=== PATIENT | female | born 1980 | race African-American/Black ===

== ENCOUNTER 2019-12-29 15:40 | Emergency (ER) | payer BC, SELFPAY ==
[2019-12-29 15:55] VITALS: BP 113/76; PULSE 72; RESP 16; TEMP 36.2; O2SAT 99
--- NOTE | 2019-12-29 15:56 | ED.UPPEXIN ---
HPI - Extremity Injury (Upper) General Chief Complaint: Extremity Injury, Upper Stated Complaint: injury Time Seen by Provider: 12/29/19 15:59 Source: patient Mode of arrival: ambulatory Limitations: no limitations History of Present Illness HPI narrative: Odalis Valdez is a 39 yo female with no PMH who comes to express care with R hand pain and tinglig/ burnng last week. Palmar hand and fingers are burning and numb. Ms. Pereira uses her hands and wrists a lot but has had a history of carpal tunnel syndrome Related Data Allergies Allergy/AdvReac Type Severity Reaction Status Date / Time No Known Allergies Allergy Verified 12/29/19 16:00 Review of Systems Review of Systems: Narrative: CONSTITUTIONAL: Denies fever, chills, sweats. EYES: Denies visual changes, redness, discharge. ENT: Denies rhinorrhea, congestion, sore throat, otalgia. CARDIOVASCULAR: Denies chest pain, palpitations, edema. RESPIRATORY: Denies dyspnea, wheezing, cough GASTROINTESTINAL: Denies abdominal pain, nausea, vomiting, diarrhea. GENITOURINARY: Denies dysuria, hematuria, abnormal discharge SKIN: Denies rash or itching. NEUROLOGIC: Denies numbness, or focal weakness. PSYCHIATRIC: Denies anxiety or depression. Extremity-hand pain and tingling, especially in palm PMFSH Family History Family History Other Family history of malignant neoplasm of male breast Social History Social History (Updated 12/29/19 @ 16:09 by Tata Velez CNP) Smoking status: Never smoker Alcohol intake: current Gender identity (if verbalized by the patient): Female Comments At time of signature, I agree with nursing past medical, surgical, social and family history. There is no relevant family history pertinent to the presenting complaint. Exam Narrative: Exam Narrative: GENERAL: This is a well-nourished, well-developed patient, in mild distress. HEAD: normocephalic, atraumatic. EYES: Sclera clear/white. Vision is grossly intact. EARS: External ears normal. Hearing grossly intact. NOSE: External nose normal without nasal discharge, nares without redness, no rhinorrhea. THROAT: Mucous membranes moist, NECK: Neck supple, CARDIOVASCULAR: Regular rate and rhythm without murmurs, gallops, or rubs. RESPIRATORY: Clear to auscultation. Breath sounds equal bilaterally. No wheezes, rales, or rhonchi. GASTROINTESTINAL: Abdomen soft, non-tender, SKIN: warm, intact with no suspicious lesions or rash, good texture and turgor. NEURO: awake, alert, and oriented to person, place and time. There were no obvious focal neurologic abnormalities. Steady gait EXTREMITIES: Normal range of motion. Both hands mildly edematous, pressure in arm when raising his arm overhead to touch shoulder, no particular tenderness in right side of neck BACK: Nontender without deformity Course Course Emergency Course: Discussed possible causes with patient Started on baclofen and Toradol Given referral sheet for finding PCP Vital Signs Vital signs: Vital Signs Temperature 97.1 F L 12/29/19 15:55 Pulse Rate 72 12/29/19 15:55 Respiratory Rate 16 12/29/19 15:55 Blood Pressure 113/76 12/29/19 15:55 Pulse Oximetry 99 12/29/19 15:55 Temperature 97.1 F L 12/29/19 15:55 Pulse Rate 72 12/29/19 15:55 Respiratory Rate 16 12/29/19 15:55 Blood Pressure 113/76 12/29/19 15:55 Pulse Oximetry 99 12/29/19 15:55 MDM - Extremity Injury (Upper) Differential Diagnosis Differential diagnosis: Likely sprain and strain of wrist, finger sprain, dislocation of shoulder and other (Radiculopathy) Discharge Plan Discharge Clinical Impression: Radiculopathy of arm Patient Disposition: Home, Self-Care Condition: Stable Instructions: Cervical Radiculopathy (ED) Additional Instructions: Elevate arm at night to sleep on pillow. Risks when using hand to allow it to rest and change position. Medications pres
== END 2019-12-29 16:20 | disposition home or self-care (01) ==
PROVIDERS: Emergency Provider Nurse Practitioner
DX: M54.10 Radiculopathy, site unspecified (principal)
CPT/HCPCS: 99213; G0463

== ENCOUNTER 2023-02-18 04:15 | Emergency (ER) | payer BC, MEDICAID, SELFPAY ==
[2023-02-18 04:19] VITALS: BP 125/69; PULSE 62; RESP 16; TEMP 36.3; O2SAT 100
--- NOTE | 2023-02-18 04:54 | ED.GENADULT ---
HPI - General Adult General Chief complaint: Extremity Problem,Nontraumatic Stated complaint: bilateral knee pain, left worse Time Seen by Provider: 02/18/23 04:24 History of Present Illness HPI narrative: This is a 42-year-old female with history of chronic knee pain presenting with knee pain exacerbation. Patient recently started a new job that involves her going up and down stairs a lot. Three days ago she started to have worsening of her knee pain greater on left than the right. She has been taking Aleve with no relief. She has appointment see her knee specialist next week. She is here for pain relief. Related Data Allergies Allergy/AdvReac Type Severity Reaction Status Date / Time No Known Allergies Allergy Verified 02/18/23 04:15 [facility] Past Medical History Medical History Chronic knee pain Family History Family History Other Family history of malignant neoplasm of male breast Social History Social History Smoking status: Never smoker Alcohol intake: current Gender identity (if verbalized by the patient): Female Exam Narrative: APPEARANCE: No apparent distress. Head: atraumatic. EYES: EOMI, NOSE: Atraumatic NECK: Trachea midline RESPIRATORY: No increased rate of breathing CARDIOVASCULAR: RRR, ABDOMINAL: Non-distended MUSCULOSKELETAl: Focal exam of the knees revealed no obvious deformity, warmth or swelling. Patient is able ambulate without difficulty NEURO: Alert. Moving 4/4 extremities SKIN:: Warm, dry. Normal color PSYCHIATRIC: Normal affect Course Vital Signs Vital signs: Vital Signs Temperature 97.3 F L 02/18/23 04:19 Pulse Rate 62 02/18/23 04:19 Respiratory Rate 16 02/18/23 04:19 Blood Pressure 125/69 02/18/23 04:19 Pulse Oximetry 100 02/18/23 04:19 Temperature 97.3 F L 02/18/23 04:19 Pulse Rate 62 02/18/23 04:19 Respiratory Rate 16 02/18/23 04:19 Blood Pressure 125/69 02/18/23 04:19 Pulse Oximetry 100 02/18/23 04:19 Medical Decision Making MDM Narrative Medical decision making narrative: -Presentation: 42-year-old female presenting with acute on chronic knee pain. no concerning findings on history and physical. Given symptomatic treatment and discharged with outpatient follow-up. 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 -RX: Tylenol, prednisone, Robaxin Vital Signs Vital Signs: Vital Signs Temperature 97.3 F L 02/18/23 04:19 Pulse Rate 62 02/18/23 04:19 Respiratory Rate 16 02/18/23 04:19 Blood Pressure 125/69 02/18/23 04:19 Pulse Oximetry 100 02/18/23 04:19 Temperature 97.3 F L 02/18/23 04:19 Pulse Rate 62 02/18/23 04:19 Respiratory Rate 16 02/18/23 04:19 Blood Pressure 125/69 02/18/23 04:19 Pulse Oximetry 100 02/18/23 04:19 Discharge Plan Discharge Clinical Impression: Chronic knee pain Patient Disposition: Home, Self-Care Condition: Stable Instructions: Antibiotic Form, Knee Pain (ED) Additional Instructions: Follow-up with the knee specialist. Prescriptions: New acetaminophen 500 mg tablet 1,000 mg PO TID PRN (Reason: césar) 7 Days Qty: 42 0RF methocarbamol 750 mg tablet 1,500 mg PO TID Qty: 35 0RF prednisone 20 mg tablet 20 mg PO DAILY Qty: 5 0RF No Action baclofen 10 mg tablet 10 mg PO BID Qty: 20 0RF ketorolac 10 mg tablet 10 mg PO Q6H 5 Days Qty: 20 0RF Follow-up/Referrals: PHYSICIAN NOT ON STAFF,NONSTAFF [Primary Care Provider] -
[2023-02-18] MEDS: methocarbamoL 750 MG TABLET 1500 MG PO (04:58)
[2023-02-18] MEDS: KETOROLAC 30 MG/ML VIAL (*BKC) 15 MG IM (04:58)
[2023-02-18] MEDS: predniSONE 20 MG TABLET PO (04:58)
[2023-02-18] MEDS: ACETAMINOPHEN 500 MG TABLET 1000 MG PO (05:00)
== END 2023-02-18 05:20 | disposition home or self-care (01) ==
PROVIDERS: Emergency Provider Emergency Medicine
DX: M25.562 Pain in left knee (principal); M25.561 Pain in right knee; G89.29 Other chronic pain
CPT/HCPCS: 96372; 99283; A9270; J1885; J7512

== ENCOUNTER 2024-05-07 11:26 | Outpatient (CLI) | payer OTHER, SELFPAY ==
--- NOTE | ~2024-05-07 | MM_ITS ---
EXAMINATION: MM screening rogelio BI w leidy HISTORY: Screening TECHNIQUE: Craniocaudal and mediolateral oblique 3-D tomosynthesis images were obtained and synthetic 2-D images were generated. CAD analysis was submitted and interpreted. COMPARISON: No prior mammogram is available for comparison at this institution. BREAST PARENCHYMAL COMPOSITION: Dense: The breasts are heterogeneously dense, which may obscure small masses FINDINGS: There are masses in the upper outer quadrant of the right breast and centered in the upper outer quadrant of the left breast. There are no suspicious calcifications or architectural distortion . IMPRESSION: 1. Bilateral breast masses. 2. Additional mammographic views and possible breast ultrasound are recommended. BI-RADS Category 0: Incomplete: Needs additional imaging evaluation. Reviewed, dictated and finalized at location B. T RELATIONS AGENT IMPRESSION: 1. Bilateral breast masses. 2. Additional mammographic views and possible breast ultrasound are recommended . BI-RADS Category 0: Incomplete: Needs additional imaging evaluation.
== END 2024-05-07 11:27 | disposition home or self-care (01) ==
LOC: MICIMG 11:27
PROVIDERS: PCP Nurse Practitioner Women's Health; Visit Provider Nurse Practitioner Women's Health
DX: Z12.31 Encounter for screening mammogram for malignant neoplasm of breast (principal); N63.11 Unspecified lump in the right breast, upper outer quadrant; N63.21 Unspecified lump in the left breast, upper outer quadrant
CPT/HCPCS: 77063; 77067

== ENCOUNTER 2024-06-07 09:51 | Outpatient (CLI) | payer OTHER, SELFPAY ==
--- NOTE | ~2024-06-07 | MMUS_ITS ---
EXAMINATION: MM diagnostic rogelio BI w leidy, US breast BI complete HISTORY: Follow-up bilateral breast masses TECHNIQUE: Additional 3-D tomosynthesis images of the breasts were performed and synthetic 2-D images were generated. CAD analysis was submitted and interpreted. High resolution bilateral complete breas t ultrasound was performed. COMPARISON: 05/07/2024 BREAST PARENCHYMAL COMPOSITION: Dense: The breasts are heterogeneously dense, which may obscure small masses FINDINGS: MAMMOGRAPHIC FINDINGS: There are no suspicious masses, calcifications or architectural distortion in the right breast to sug gest malignancy. There is a circumscribed mass in the upper inner quadrant of the left breast, middle third. ULTRASOUND: Complete US of all 4 quadrants of the breast/s and retroareolar region was reviewed. Right breast: There are multiple cysts of the right breast, largest measuring 6 mm. No suspicious mas ses to suggest malignancy. Left breast: At 11:00, 7 cm from the nipple in the area of mammographic concern there is a heterogene ous predominantly hypoechoic mass measuring 2.5 x 1.6 x 4.1 cm with mixed posterior attenuation. Ther e is marginal vascularity. At 11:00, 7 cm from the nipple there is a 1.3 cm cyst. IMPRESSION: 1. Complex hypoechoic 4.1 cm left breast mass at 11:00, 7 cm from the nipple. 2. Ultrasound-guided left breast biopsy recommended. BI-RADS category 4, suspicious findings. Reviewed, dictated and finalized at location B. ESS INSTALLER IMPRESSION: 1. Complex hypoechoic 4.1 cm left breast mass at 11:00, 7 cm from the nipple. 2. Ultrasound-guided left breast biopsy recommended. BI-RADS category 4, suspicious findings.
== END 2024-06-07 09:52 | disposition home or self-care (01) ==
LOC: MICIMG 09:52
PROVIDERS: PCP Obstetrics & Gynecology Gynecology; Visit Provider Obstetrics & Gynecology Gynecology
DX: R92.8 Other abnormal and inconclusive findings on diagnostic imaging of breast (principal)
CPT/HCPCS: 76641; 77062; 77066; G0279